=== PATIENT | male | born 1960 | race Caucasian/White ===

== ENCOUNTER 2016-05-29 02:15 | Inpatient (IN) | payer OTHER ==
[~2016-05-29] VITALS: Ht 188 cm; Wt 113.4 kg
[~2016-05-29 02:15] MED LIST: ASPIRIN81 M4 PO; ATACAND8 MG PO; COLCRYS0.6 MG PO; ELAVIL25 MG PO; FERROUS SULFAT325 M3 PO; METOPROLOL SUCC25 M1 PO; VITAMIN B-121000 MC3 PO; WARFARIN SODIUM5 MG PO
[2016-05-29 08:00] VITALS: BP 108/20
--- NOTE | 2016-05-29 12:43 | Operative Report ---
Operative/Inv Procedure Report Surgery Date: 05/29/16 Name of Procedure: Left total knee arthroplasty using a Striker triathlon system Pre-Operative Diagnosis: Degenerative joint disease left knee Post-Operative Diagnosis: Degenerative joint disease left knee Estimated Blood Loss: 50ml to 100ml Surgeon/Veterinary Laboratory Technician: Dandy Dumont M.D, Kenneth CORONA. Anesthesia: block Implants: A #7 posterior stabilized femoral component, a #6 tibial baseplate, a 39 mm patella component, a 16 mm polyethylene component Drains: One Hemovac Tourniquet: Tourniquet time was 96 minutes Complications: None Condition: Stable returned to PACU Operative Indication: This is a 55-year-old gentleman who has severe medial compartment arthritis. He has had injections and medication in the past but has failed conservative treatment. Because of his pain and inability to perform normal activities of daily living he is admitted for a left total knee arthroplasty Operative/Procedure Note Note: The patient received IV vancomycin in the preoperative area. He was taken to the operating room and a spinal anesthetic was administered. A second pair of skilled hands was required for the successful outcome of this procedure. Mr. Kenneth Powell, a certified physician's mechanic assistant assisted in retraction coagulation and positioning of the components. His presence was required for the successful completion of this operation. The patient was given a dose of trans-Zacarias acid, the left lower knee was then prepped and draped in usual sterile fashion a legholder was used throughout the procedure and a tourniquet was inflated above the left knee to a pressure of 350 mmHg after the leg had been exsanguinated with a sterile Esmarch. A midline incision was made and taken out through skin and subcutaneous tissue. Small bleeders were cauterized with the Bovie. A medial parapatellar incision was made and the patella was easily dislocated laterally. Osteophytes removed from the femur, tibia and patella. Medial and lateral vasectomy is were performed. The anterior cruciate ligament was excised. A medial release was performed. A drill hole was then made just anterior to the attachment of the anterior cruciate ligament and the long femoral guide sabino was inserted into the medullary canal. The distal femoral cutting jig was assembled and the distal femoral cut was made without difficulty. The cut surface of the femur was then sized to a #7 femoral template. Anterior, posterior and chamfer cuts were then made. A midline channel jig was then used to osteotomize the midportion of the distal femur to accept the posterior stabilized component. Attention was then turned to the tibial surface. A drill hole was made at the footprint of the anterior cruciate ligament and the tibial guide sabino was placed into the tibial medullary canal without difficulty. 10 mm of bone were then resected from the most affected medial side. A #6 tibial baseplate afforded good coverage. A trial reduction was then performed using a 13 mm tibial insert this was later changed to a 16 mm tibial insert. This allowed a full range of motion with good extension and good medial and lateral ligamentous balance. Attention was then turned to the patella. A flat osteotomy was performed and a 39 mm patellar trial was selected. This tracked well without the need of a lateral release. The cut surface of the tibial plateau was then drilled to accept the fins of the tibial baseplate. The cut surfaces of all of the bones were then copiously irrigated with pulsatile antibiotic solution and dried. A #7 femoral component was cemented into place after a #6 tibial component was cemented into place. Excess cement was removed with curettes and then a 16 mm polyethylene temporary trial tibial insert was placed and the knee was held in extension. A 39 patellar button was then cemented into place and held with a clamp until all cement had dried. The trial tibial insert was then removed and a permanent 16 mm polyethylene insert was placed over the baseplate and locked into position. The patient had a full range of motion and good medial and lateral ligamentous balance. The patella tracked well. The knee again was copiously irrigated. A large Hemovac drain was placed in the lateral gutter through a small stab incision. The deep tissues were closed with 0 Vicryl interrupted sutures. The subcutaneous tissues are closed with 2-0 Vicryl and the skin was closed with surgical segun. Blood loss was scant. Tourniquet time was 96 minutes. He was returned to the recovery room in excellent condition.
[2016-05-29 15:50] VITALS: BP 102/70
--- NOTE | 2016-05-29 16:38 | PN- Student ---
SAURABHMOERILEY 05/29/16 1633: Subjective Subjective: Post-op check, day #0 Patient just moved to floor. Reports to feeling well aside from mild incisional tenderness. Denies nausea, vomiting, chest pain, shortness of breath, dizziness, lightheadedness. Tolerated his light lunch well, without any nausea. Has a sauceda in place still, has not passed flatus. Has only moved from bed to chair with walker, has not been evaluated by PT. Has on-Q pump in place. States no acute pain, just sore over his left knee. Objective Objective: Temp: 97.7, HR : 61, RR: 18, BP: 102/70, O2: 94% RA NEVILLE drain x 1: 100mL, sanguinous Gen: well appearing, in no apparent distress, alert and oriented x 3 Skin: warm dry Cardiac: S1 S2 present, RRR Pulm: CTA bilaterally Abdomen: hypoactive bowel sounds, non-tender, mildly distended. Surgerical site - left knee: dressing clear dry intact, with segun intact underneath. No erythema, ecchymosis around area, non tender to palpation. Has OnQ pump in place Ext: motor and sensory functions intact. No calf tenderness. Assessment/Plan Assessment: 55 yo M s/p elective total left knee replacement for degenerative joint disease. Currently all vital signs stable and patient resting comfortably - Advance diet as tolerated - FU PT consult, weight bearing as tolerated - DVT and GI prophylaxis - Bowel regimen. - Consider DC sauceda in AM - Continue home meds, including BB - Pain control as needed - Change dressing on POD #2 - Discuss with attending ZAYDA ELIZABETH 05/29/16 1701: Addendum Addendum I have seen and examined patient and agree with above. Patient tolerating PO with good intake. DC IVF. Eliquis to start tonight.
[2016-05-29 18:00] VITALS: BP 102/20
--- NOTE | 2016-05-29 21:07 | NUR ---
CALL RECEIVED FROM DR GREENE. VERBAL ORDER RECEIVED TO HOLD DOSE OF ELIQUIS AND TO HAVE PT STARTED BACK ON COUMADIN. SURGICAL PA TEVIN WITT CALLED AND UPDATED. PA TO CHANGE ORDERS.
[2016-05-30] VITALS (7 sets, daily range): BP systolic 88–118; BP diastolic 62–76
--- NOTE | 2016-05-30 06:54 | PN- Student ---
DAVE WILEY 05/30/16 0648: Subjective Subjective: Post op check, day #1 Patient did well overnight, with no acute events. His IVF was DC yesterday. Reports that his incisional pain is slightly worse than yesterday as now it's more of a constant dull soreness/pain over his left knee. He has the On-Q pump in place, and states pain is relieved by pain medications. He's also reporting some numbness just superior to the incision. He's been tolerating his regular diet without any nausea, vomiting. His sauceda was DC'd this AM and reports to passing gas last night. He denies headaches, lightheadedness, dizziness, shortness of breath, abdominal pain. He was assessed by PT yesterday and will be re-assessed today. Objective Objective: Temp: 97.8, HR: 67, RR: 20, BP: 110/76 96% O2 RA NEVILLE drain x 1: 205mL/shift, sanguinous Gen: well appearing, in no apparent distress, alert and oriented x 3 Skin: warm dry Cardiac: S1 S2 present, RRR Pulm: CTA on right. Diminished breath sounds over left lung base. Abdomen: active bowel sounds, non-tender, mildly distended. Surgerical site - left knee: dressing clear dry intact, with segun intact underneath. No erythema, ecchymosis around area, tender to palpation. Has OnQ pump in place Ext: motor and sensory functions intact. No calf tenderness. PTs not appreciated , but DP 1+ Assessment/Plan Assessment: 55 yo M s/p elective total left knee replacement for degenerative joint disease now POD#1. Currently all vital signs stable and patient resting comfortably. His IVF and Sauceda have been DC'd - Advance diet as tolerated - FU PT consult, weight bearing as tolerated - DVT with coumadin, FU INR this AM - GI prophylaxis - Bowel regimen - Continue home meds, including BB - Pain control as needed - FU AM labs - Change dressing on POD #2 - Discuss with attending ZAYDA ELIZABETH 05/30/16 9337: Addendum Addendum I have seen and examined patient and agree with above. DC IVF. NEVILLE drain dc'd bedside. OOB with PT, WBAT. DC planning for tomorrow for home PT.
[2016-05-30 08:04] LABS: ABSOLUTE BASOPHIL COUNT 0 /CUMM (0.0-0.2); ABSOLUTE EOSINOPHIL COUNT 0 /CUMM (0.0-0.7); ABSOLUTE GRANULOCYTE CT 5.8 /CUMM (1.4-6.5); ABSOLUTE LYMPH COUNT 1.1 /CUMM (1.2-3.4); ABSOLUTE MONOCYTE COUNT 0.7 /CUMM (0.10-0.60); BASOPHIL % 0.2 % (0.0-2.0); EOSINOPHIL % 0.1 % (0-5); HEMATOCRIT 36.6 % (42-52); MEAN CORPUSCULAR HGB 30.9 PG (27.0-31.0); MEAN CORPUSCULAR HGB CONC 34.3 G/DL (33.0-37.0); MEAN PLATELET VOLUME 8.4 FL (7.4-10.4); PLATELET COUNT 150 /CUMM (130-400); RBC DISTRIBUTION WIDTH 13.5 % (11.5-14.5); RED BLOOD CELL CT 4.07 /CUMM (4.70-6.10); WHITE BLOOD CELL COUNT 7.6 /CUMM (4.8-10.8)
[2016-05-30 08:24] LABS: GRANULOCYTE % 76.6 % (42.2-75.2)
[2016-05-30 08:29] LABS: PT 13.5 SEC (9.4-12.5)
--- NOTE | 2016-05-30 09:28 | Patient Discharge Instructions ---
Discharge Instructions General Discharge Information You were seen/treated for: Degenerative joint disease left knee You had these procedures: 05/29/16 Left total knee arthroplasty using a Sonicbids system Watch for these problems: Redness, swelling, fever, signs of infection. Uncontrolled pain, Excessive bleeding. Decreased range of motion or unable to bear weight. Chest pain, shortness of breath. Do not soak the wound: Yes No bath, but you may shower: Yes Other wound care: Daily dressing changes or as needed. Leave steri strips in place for at least 7 days. Special Instructions: Hold blood pressure medication metoprolol and atacand now for low blood pressure. My resume if blood pressure returns to pre-op levels. Monitor daily. Follow up with insurance advisor Dr La within 1-2 weeks for blood pressure medication management. Diet Continue normal diet: Yes Activity Activity Self Limited: Yes Activity Limited to: Weight bear as tolerated Additional ACTIVITY Info: Daily PT Acute Coronary Syndrome Inclusion Criteria At DC or during hospital stay patient has or had the following: ACS DIAGNOSIS No Discharge Core Measures Meds if any: Prescribed or Continued at Discharge Meds if any: NOT Prescribed or Continued at Discharge Congestive Heart Failure Inclusion Criteria At DC or during hospital stay patient has or had the following: CHF DIAGNOSIS No Discharge Core Measures Meds if any: Prescribed or Continued at Discharge Meds if any: NOT Prescribed or Continued at Discharge Cerebrovascular accident Inclusion Criteria At DC or during hospital stay patient has or had the following: CVA/TIA Diagnosis No Discharge Core Measures Meds if any: Prescribed or Continued at Discharge Meds if any: NOT Prescribed or Continued at Discharge Venous thromboembolism Inclusion Criteria VTE Diagnosis No VTE Type NONE VTE Confirmed by (Test) NONE Discharge Core Measures - Per Current guidelines, there needs to be overlap - treatment for the first 5 days of Warfarin therapy. - If discharged on Warfarin prior to 5 days of - overlap therapy, the patient will need to be - assessed for post discharge needs including - *Post discharge parental anticoagulation - *Warfarin and/or parental anticoagulation education - *Follow up date to check INR post discharge At least 5 days overlap therapy as Inpatient No Meds if any: Prescribed or Continued at Discharge Note: Overlap Therapy is Warfarin and Anticoagulant Meds if any: NOT Prescribed or Continued at Discharge
[2016-05-30] MEDS ORDERED: COLACE100 M1 PO (09:31)
[2016-05-30] MEDS ORDERED: MIRALAX17 G1 PO (09:31)
[2016-05-30] MEDS ORDERED: PERCOCET 5-3251 EACH PO (09:31)
--- NOTE | 2016-05-30 09:33 | Discharge Summary ---
Visit Information Visit Dates Admission Date: 05/29/16 Discharge Date: 06/01/16 Hospital Course Course Attending Physician: JC MINER,TIMOTHY Bucio Primary Care Physician: LUKE MINER,[facility] Course: Patient admitted to floor following procedure below. Patient ambulated with PT upon arrival to the floor. Patient continued to progress well. On POD 2 he was dizzy with standing numerous times throughout the day and unable to walk with PT. He attributed this to taking a sleeping pill along with the continued percocet. His blood pressure and all other vital signs remained stable, with a systolic bp in the 110-118 range. The next day he was cleared by PT for discharge home with services. Upon discharge patient is afebrile, tolerating diet, pain controlled, ambulating well with rolling walker and PT. Complications: None Allergies: Coded Allergies: NO KNOWN ALLERGIES (05/14/16) Significant Procedures: 05/29/16 Left total knee arthroplasty using a Striker CleanEdisonathlon system Disposition Summary Disposition Principal Diagnosis: Degenerative joint disease left knee Additional Diagnosis: None Discharge Disposition: home health services Discharge Instructions General Discharge Information Code Status: Full Code Patient's Diet: Resume normal diet Patient's Activity: WBAT Daily physical therapy Follow-Up Instructions/Appts: Call office to schedule/confirm appointment. Call Dr La office for an appointment regarding blood pressure within one week. Medications at Discharge Discharge Medications: Stop taking the following medications: Metoprolol Succinate (Metoprolol Succinate) 25 MG TAB ORAL DAILY Aspirin (Aspirin*) 81 MG TAB.CHEW ORAL DAILY Candesartan Cilexetil (Atacand) 8 MG TABLET ORAL Every Day Continue taking these medications: Candesartan Cilexetil (Atacand) 8 MG TABLET 1 Tablet ORAL DAILY Colchicine (Colcrys) 0.6 MG TAB 0.6 Milligram ORAL Every night Qty = 30 Comments: TAKE 1 TABLET EVERY DAY - SIG Obtained From Luciana Amitriptyline Hydrochloride (Elavil) 25 MG TAB 50 mg ORAL AT BEDTIME Qty = 20 Ferrous Sulfate (Ferrous Sulfate) 325 MG (65 MG IRON) TABLET 1 Tablet ORAL DAILY Cyanocobalamin (Vitamin B-12) (Unknown Strength) TABLET 1 Tablet ORAL DAILY Start taking the following new medications: Oxycodone HCl/Acetaminophen (Percocet 5-325 MG Tablet) 5 MG-325 MG TABLET 1-2 Tablet ORAL EVERY 4-6 HOURS as needed for PAIN Qty = 36 No Refills Polyethylene Glycol 3350 (Miralax) 17 GRAM POWD.PACK 1 Packet ORAL DAILY Qty = 14 No Refills Instructions: dissolve in water Docusate Sodium (Colace) 100 MG CAPSULE 1 Capsule ORAL TWICE DAILY as needed for CONSTIPATION Qty = 14 No Refills Warfarin Sodium (Coumadin) 5 MG TABLET 1 Tablet ORAL DAILY Qty = 30 No Refills Instructions: TO BE DOSED ACCORDING TO INR. GOAL INR 2-3. INR TWICE WEEKLY UNTIL STABLE Copies To: JC MINER,TIMOTHY Bucio; LUKE MINER,ASHER
--- NOTE | 2016-05-30 09:45 | NUR ---
PT UP TO WORK WITH PT. PT HAD QUICKLY JUMPED OOB INSTEAD OF TAKING TIME TO SIT THEN STAND AND THEN EVENTUALLY WALK WITH PT. PT C/O DIZZINESS, PALLOR NOTED. PT ASSISTED TO SIT BACK DOWN. VS ASSESSED- 98.3 66 20 102/70 97% RA. DENIES PAIN. AFTER WAITING A PERIOD OF TIME, PT ASSISTED AGAIN OOB TO CHAIR W/AX2 STANDBY WITH USE OF RW. SLIGHT BLEEDING NOTED TO PT'S LLE SAROJ WRAP (NEVILLE DRAIN REMOVED THIS AM BY PA AND PA STUDENT- PT DID HAVE A MODERATE AMT OF BLOOD LOSS FROM SITE) UPON STANDING AGAIN, PT C/O DIZZINESS AGAIN. VS REASSESED- ALL WNL EXCEPT FOR BP-- NOW 88/62. PT ASSISTED INTO CHAIR. BLE'S ELEVATED IN RECLINER. SURGICAL PA MAYELA NOTIFIED. SNO FOR IV BOLUS. PT ALSO REPORTED HE HASN'T BEEN TAKING MUCH PO INTAKE. PO FLUID INTAKE ENCOURAGED. IV BOLUS STARTED. PT REPORTS HE FEELS "FINE" IN THE RECLINER. WILL CONT TO MONITOR. BOLUS STARTED. TO HOLD LOSARTAN PER PA BUT TO REASSESS BP AFTER BOLUS AND SEE IF METOPROLOL CAN BE GIVEN. WILL CONT TO MONITOR.
--- NOTE | 2016-05-30 14:01 | PN- Orthopedic ---
Subjective Subjective: Clark is 24 hours status post left total knee arthroplasty. He is comfortable with his pain block. His vital signs are stable. He had some lightheadedness this morning but after a second attempt use able to ambulate 150 feet with a walker. He feels well. He is anticipating a discharge to home tomorrow. Objective Vital Signs and I&Os Vital Signs Date Time Temp Pulse Resp B/P Pulse O2 O2 Flow FiO2 Ox Delivery Rate 05/30 1139 75 118/62 05/30 1130 75 118/62 05/30 0950 98.4 75 20 88/62 96 Room Air 05/30 0945 98.3 66 20 102/70 97 Room Air 05/30 0818 98.4 72 20 110/73 94 Room Air 05/30 0410 97.8 67 20 110/76 96 05/30 0020 97.9 70 20 114/68 95 05/29 1800 97.7 61 18 102/20 94 Room Air 05/29 1550 97.7 61 18 102/70 94 Intake & Output 05/30 1600 05/30 0800 05/30 0000 05/29 1600 05/29 0800 05/29 0000 Intake Total 1220 Output Total 1705 990 775 Balance -1705 -990 445 Intake, IV 500 Intake, Oral 720 Number 0 Bowel Movements Output, 205 140 175 Drainage Output, Urine 1500 850 600 Patient 250 lb Weight Physical Exam Other Physical Findings: His dressing is dry neurologically he is intact Current Medications: Current Medications Sig/Niki Start time Last Medication Dose Route Stop Time Status Admin Al Hydroxide/Mg 30 ML Q6P PRN 05/29 1315 AC Hydroxide PO Amitriptyline HCl 50 MG AT BEDTIME 05/29 2200 AC 05/29 PO 2112 Apixaban 2.5 MG BID 05/29 2200 DC PO Colchicine 600 MCG QPM 05/29 2200 DC PO Dextrose/Lactated 1,000 ML Q13H 05/29 1315 DC 05/29 Ringer's IV 1408 Docusate Sodium 100 MG DAILY NEEDED PRN 05/29 1315 AC PO Losartan Potassium 37.5 MG DAILY 05/30 1000 AC PO Metoprolol Succinate 50 MG DAILY 05/30 1000 AC 05/30 PO 1139 Morphine Sulfate 2 MG Q2P PRN 05/29 1315 AC IV Morphine Sulfate 4 MG Q1P PRN 05/29 1315 AC 05/30 IV 1337 Ondansetron HCl 4 MG Q6P PRN 05/29 1315 AC IV Oxycodone/ 1 TAB Q4P PRN 05/29 1315 AC Acetaminophen PO Oxycodone/ 2 TAB Q4P PRN 05/29 1315 AC 05/30 Acetaminophen PO 1140 Polyethylene Glycol 17 GM DAILY NEEDED PRN 05/29 1315 AC PO Ropivacaine 500 ML ONCE ONE 05/29 1200 AC ON-Q Ball 1 BAG INJ 05/31 1359 Senna/Docusate Sodium 2 TAB AT BEDTIME NEED.. 05/29 1315 AC PO Sodium Chloride 500 ML BOLUS ONE 05/30 0945 DC 05/30 IV 05/30 1044 0944 Vancomycin HCl 1,500 MG ONCE ONE 05/29 1900 DC 05/29 Sodium Chloride 250 ML IV 05/29 2029 1808 Warfarin Sodium 5 MG COUMADIN 1700 ONE 05/30 1700 AC PO 05/30 1701 Warfarin Sodium 5 MG ONE TIME ONE 05/29 213 DC 05/29 PO 05/29 2131 2202 Results Last 48 Hours of Labs: Laboratory Tests 05/30 0715 Chemistry Sodium (137 - 145 mmol/L) 135 L Potassium (3.5 - 5.1 mmol/L) 4.3 Chloride (98 - 107 mmol/L) 101 Carbon Dioxide (22 - 30 mmol/L) 26 Anion Gap (5 - 16) 7 BUN (9 - 20 mg/dL) 11 Creatinine (0.7 - 1.2 mg/dL) 0.7 Estimated GFR (>60 ml/min) > 60 BUN/Creatinine Ratio (7 - 25 %) 15.7 Coagulation PT (9.4 - 12.5 SEC) 13.5 H INR (0.90 - 1.17) 1.29 H Hematology CBC w Diff NO MAN DIFF REQ WBC (4.8 - 10.8 /CUMM) 7.6 RBC (4.70 - 6.10 /CUMM) 4.07 L Hgb (14.0 - 18.0 G/DL) 12.6 L Hct (42 - 52 %) 36.6 L MCV (80.0 - 94.0 FL) 90.0 MCH (27.0 - 31.0 PG) 30.9 RDW (11.5 - 14.5 %) 13.5 Plt Count (130 - 400 /CUMM) 150 MPV (7.4 - 10.4 FL) 8.4 Gran % (42.2 - 75.2 %) 76.6 H Lymphocytes % (20.5 - 51.1 %) 14.0 L Monocytes % (1.7 - 9.3 %) 9.1 Eosinophils % (0 - 5 %) 0.1 Basophils % (0.0 - 2.0 %) 0.2 Absolute Granulocytes (1.4 - 6.5 /CUMM) 5.8 Absolute Lymphocytes (1.2 - 3.4 /CUMM) 1.1 L Absolute Monocytes (0.10 - 0.60 /CUMM) 0.7 H Absolute Eosinophils (0.0 - 0.7 /CUMM) 0 Absolute Basophils (0.0 - 0.2 /CUMM) 0 PUBS MCHC (33.0 - 37.0 G/DL) 34.3 Assessment/Plan Assessment/Plan Assessment status post left total knee arthroplasty with good postoperative progress he'll be discharged to home on Thursday area his sutures were removed in the office in 2 weeks. At that point he may be ready for outpatient therapy. He will be on warfarin therapy for 6 weeks and will have his blood levels checked at the [facility] clinic and I will see him back routinely in the office in 4 weeks or sooner if any concerns or problems develop Core Measures/Miscellaneous Venous Thromboembolism VTE Risk Factors: Acute medical illness (na) VTE Contraindications: Abn Clotting Times, Active Bleeding, Docu Bleeding Disorder, Hypersensitivity Heparin, No Contraindications, Severe Extrem Trauma x4wk, Severe Head Trauma x4 wk, Severe Renal Fail- LMWH, Severe Spine Trauma x4 wk, Uncontrolled Hypertension VTE Prophylaxis Ordered Inpt: Pharm- Eliquis [facility] V[facility] Prophylaxis D/T: Amputee, At Risk for Falls, CHF, Confusional State, Dermatitis, DVT of LE, General Pt Non-Compliance, Hypervolemia, LE Deformity, LE Edema, LE Injury, current, Lower Limb Ischemia, Peripheral Vascular Dx, Pt Refused Treatment, Sensory Neuropathy VTE Diagnosis: Yes Beta Radha Is Beta Radha a Home Med? Yes Antibiotics Is Patient on Antibiotics? No
[2016-05-31 00:42] VITALS: BP 118/70
[2016-05-31 08:00] VITALS: BP 114/64
[2016-05-31 08:44] LABS: ABSOLUTE BASOPHIL COUNT 0 /CUMM (0.0-0.2); ABSOLUTE EOSINOPHIL COUNT 0.1 /CUMM (0.0-0.7); ABSOLUTE GRANULOCYTE CT 3.1 /CUMM (1.4-6.5); ABSOLUTE LYMPH COUNT 1.3 /CUMM (1.2-3.4); ABSOLUTE MONOCYTE COUNT 0.8 /CUMM (0.10-0.60); BASOPHIL % 0.3 % (0.0-2.0); GRANULOCYTE % 58.6 % (42.2-75.2); HEMATOCRIT 32.2 % (42-52); MEAN CORPUSCULAR HGB CONC 34.4 G/DL (33.0-37.0); MEAN CORPUSCULAR VOLUME 89.9 FL (80.0-94.0); MEAN PLATELET VOLUME 8.4 FL (7.4-10.4); PLATELET COUNT 114 /CUMM (130-400); RBC DISTRIBUTION WIDTH 13.7 % (11.5-14.5); RED BLOOD CELL CT 3.58 /CUMM (4.70-6.10); WHITE BLOOD CELL COUNT 5.3 /CUMM (4.8-10.8)
[2016-05-31] MEDS ORDERED: ATACAND8 MG PO (09:39)
[2016-05-31] MEDS ORDERED: COUMADIN5 M2 PO ×2 (09:42→10:18)
--- NOTE | 2016-05-31 10:24 | PN- Orthopedic ---
See Addendum Subjective Subjective: OOB in chair. Just felt dizzy while standing but it passed and he feels better now. Pain well controlled with oral meds. Worked with PT but has not cleared stairs yet. Objective Vital Signs and I&Os Vital Signs Date Time Temp Pulse Resp B/P Pulse O2 O2 Flow FiO2 Ox Delivery Rate 05/31 800 98.2 81 18 114/64 95 Room Air 05/31 0042 98.4 83 19 118/70 95 Room Air 05/30 1607 98.3 71 20 118/70 96 05/30 1139 75 118/62 05/30 1130 75 118/62 Intake & Output 05/31 1600 05/31 0800 05/31 0000 05/30 1600 05/30 0800 05/30 0000 Intake Total 250 480 800 Output Total 400 918 986 7750 990 Balance -150 -95 650 -1705 -990 Intake, IV 500 Intake, Oral 250 480 300 Number 0 Bowel Movements Output, 205 140 Drainage Output, Urine 400 253 660 6658 850 Physical Exam: vss, afebrile systolic bp at 118 without metoprolol or atacand and has been running on the low side post op General: alert and oriented times three, no dizziness Chest: clear anteriorly bilaterally, RRR Abd: soft, good bs Ext: warm, no edema, positive sensate, good strength, no calf tenderness Wound: dressing changed, wound is clean and dry, segun intact, no erythema Assessment/Plan Assessment/Plan 55 yo male s/p L TKR coumadin per INR PT dc home with home services if cleared by PT fu visit already scheduled Plan to hold bp meds at discharge - discussed in detail with patient and he understands, he will follow up with Dr La - cardiology within 1-2 weeks of discharge and check blood pressure daily. He will resume meds if systolic>120 routinely Core Measures/Miscellaneous Venous Thromboembolism VTE Risk Factors: Age > 40, Surgery VTE Contraindications: No Contraindications VTE Prophylaxis Ordered Inpt: Mech & Pharm VTE Diagnosis: No Beta Radha Is Beta Radha a Home Med? Yes If Yes, Was This Ordered Today? No If No, Why Not? hypotension Antibiotics Is Patient on Antibiotics? No
--- NOTE | 2016-05-31 11:06 | NUR ---
LATE ENTRY: PT LEFT FLOOR FOR XRAY AT 0755 AND RETURNED AT 0822. HE C/O DIZZINESS AFTER TRANSFERRING FROM STRETCHER TO CHAIR. PHYSICAL THERAPY ATTEMPTED TO WALK WITH HIM THREE TIMES. TWICE HE WAS TOO DIZZY TO TRY. HIS BP WAS WAS 122/74, PULSE 90. ON THEIR THIRD TRY, HE WAS AGREEABLE TO TRANSFER TO BED, BUT NOT TO ATTEMPT STAIRS. WILL CONTINUE TO MONITOR.
--- NOTE | 2016-05-31 11:10 | NUR ---
Physical Therapy Attempts made x2 to see pt for PT this AM. Upon first attempt pt reports after returning from x-ray and sitting up in chair feeling mild dizziness/light-headed. RN and surgical PA aware and monitoring pt vitals. As per RN BP has been stable all morning. Second attempt made; pt continues with report of dizziness sitting in chair therefore PT deferred at this time. Will f/u as appropriate, pending pt symptoms. D/c home on hold at this time as per PA/RN.
--- NOTE | 2016-05-31 11:31 | RADIOLOGY REPORT ---
EXAMINATION: XR KNEE, LEFT CLINICAL INFORMATION: Total knee arthroplasty. COMPARISON: MRI of the knee from 11/28/2014 TECHNIQUE: Left knee, AP and crosstable lateral views FINDINGS: The components of the total knee arthroplasty are in satisfactory position. There is anatomic alignment at the patellofemoral and tibiofemoral compartments. No acute periprosthetic fracture. Postoperative soft tissue swelling, soft tissue emphysema and anterior skin segun in place. IMPRESSION: There are expected postoperative changes from total knee arthroplasty without acute fracture or malalignment.
--- NOTE | 2016-05-31 14:03 | NUR ---
AT THIS TIME, PT REPORTS THAT HIS DIZZINESS HAS RETURNED, AND HE WANTS TO REFRAIN FROM TAKING PAIN MEDS TO SEE IF THAT'S THE CULPRIT. WILL CONTINUE TO MONITOR.
[2016-05-31 17:08] VITALS: BP 118/72
[2016-06-01 00:36] VITALS: BP 116/68
--- NOTE | 2016-06-01 07:31 | PN- Orthopedic ---
See Addendum Subjective Subjective: The patient was seen this morning postoperatively day #3. He reports his pain is under adequate control and he is not dizzy as he was yesterday. He has no other points of the current time and is eager to go home today. Objective Vital Signs and I&Os Vital Signs Date Time Temp Pulse Resp B/P Pulse O2 O2 Flow FiO2 Ox Delivery Rate 06/01 0036 98.0 88 20 116/68 95 05/31 1708 98.0 92 18 118/72 95 05/31 0800 98.2 81 18 114/64 95 Room Air Intake & Output 06/01 0800 06/01 0000 05/31 1600 05/31 0800 05/31 0000 05/30 1600 Intake Total 400 800 250 480 800 Output Total 425 450 300 400 575 150 Balance -425 -50 500 -150 -95 650 Intake, IV 500 Intake, Oral 400 800 250 480 300 Number 0 Bowel Movements Output, Urine 425 450 300 400 575 150 Physical Exam: Gen.: Alert and in obvious distress Skin: Warm and dry Extremities: Bilateral lower extremities are warm without calf tenderness or significant edema. Gross motor and sensory are intact. Left knee surgical incision is clean, dry, and intact without signs of infection. Assessment/Plan Assessment/Plan Assessment: 55-year-old male status post left total knee arthroplasty operative day #3. The patient is progressing as expected, his pain started adequate control, and she is working with physical therapy. Plan: Follow-up morning labs and dose Coumadin for an INR between 2 and 3 GI and DVT prophylaxis Continue current pain regiment Daily dry dressing change to surgical site Discharge home later today if is cleared by physical therapy on stairs Core Measures/Miscellaneous Venous Thromboembolism VTE Risk Factors: Age > 40, Surgery VTE Contraindications: No Contraindications VTE Prophylaxis Ordered Inpt: Mech & Pharm VTE Diagnosis: No Beta Radha Is Beta Radha a Home Med? Yes If Yes, Was This Ordered Today? No If No, Why Not? hypotension Antibiotics Is Patient on Antibiotics? No
[2016-06-01 08:09] VITALS: BP 140/72
[2016-06-01 08:52] LABS: PT 14.9 SEC (9.4-12.5)
== END 2016-06-01 11:25 | disposition home health service (06) | DRG 470 ==
LOC: SDA 02:15 → 2NB 12:58
PROVIDERS: Physician Assistant; Physician Assistant Surgical; ADMIT Orthopaedic Surgery
PROC: 0SRD0J9 Replacement of Left Knee Joint with Synthetic Substitute, Cemented, Open Approach (ICD-10-PCS; principal; 2016-05-29)
DX: M17.12 Unilateral primary osteoarthritis, left knee (principal); D62 Acute posthemorrhagic anemia; I10 Essential (primary) hypertension; I48.2 Chronic atrial fibrillation; E78.5 Hyperlipidemia, unspecified
CPT/HCPCS: 2NBSP; 36415; 73560-LT; 82436; 87086; 88305; 97001-GP; 97110-GO; 97116-GO; 97530-GO; C1713; J0131; J2405; J2795; J3370; J7040

== ENCOUNTER 2016-09-09 00:38 | Emergency (ER) | payer OTHER ==
[~2016-09-09] VITALS: Ht 190.5 cm; Wt 108.9 kg
[~2016-09-09 00:38] MED LIST changes: +COLACE100 M1 PO; +COUMADIN5 M2 PO; +MIRALAX17 G1 PO; +PERCOCET 5-3251 EACH PO
--- NOTE | 2016-09-09 01:00 | ED GI/GU/ABDOMINAL COMPLAINT ---
History of Present Illness General Chief Complaint: Abdominal Pain/Flank Pain Stated Complaint: LEFT LOWER ABD PAIN X2 DAYS Source: patient Exam Limitations: no limitations Vital Signs & Intake/Output Vital Signs & Intake/Output Vital Signs Date Time Temp Pulse Resp B/P Pulse O2 O2 Flow FiO2 Ox Delivery Rate 09/09 0148 80 178/98 09/09 0047 96.9 70 18 163/94 97 Room Air Allergies Coded Allergies: No Known Allergies (09/09/16) Reconcile Medications Amitriptyline Hydrochloride (Elavil) 25 MG TAB 50 mg PO AT BEDTIME neuralgia Colchicine (Colcrys) 0.6 MG TAB 0.6 MG PO QPM CARDIAC (Reported) Cyanocobalamin (Vitamin B-12) (Unknown Strength) TABLET 1 TAB PO DAILY SUPPLEMENT (Reported) Docusate Sodium (Colace) 100 MG CAPSULE 1 CAP PO BID PRN CONSTIPATION Ferrous Sulfate 325 MG (65 MG IRON) TABLET 1 TAB PO DAILY SUPPLEMENT ( Reported) Ibuprofen 800 MG TABLET 1 TAB PO TID PRN PAIN Ondansetron (Zofran Odt) 4 MG TAB.RAPDIS 1 TAB PO Q6 PRN NAUSEA Oxycodone HCl/Acetaminophen (Percocet 5-325 MG Tablet) 5 MG-325 MG TABLET 1 TAB PO Q4-6 PRN BREAKTHROUGH PAIN Oxycodone HCl/Acetaminophen (Percocet 5-325 MG Tablet) 5 MG-325 MG TABLET 1-2 TAB PO Q4-6 PRN PAIN Polyethylene Glycol 3350 (Miralax) 17 GRAM POWD.PACK 1 PAC PO DAILY CONSTIPATION dissolve in water Tamsulosin HCl (Flomax) 0.4 MG CAP.ER.24H 1 CAP PO DAILY KIDNEY STONE Warfarin Sodium (Coumadin) 5 MG TABLET 1 TAB PO DAILY BLOOD THINNER TO BE DOSED ACCORDING TO INR. GOAL INR 2-3. INR TWICE WEEKLY UNTIL STABLE Triage Note: TRIAGE: PATIENT TO ER REPORTS L LOW ABD PAIN W/ VOMITTING X1 HOUR, HAD SAME EPISODE ON THURSDAY WHICH DID NOT RESULT IN VOMITTING, LASTED APPROX 1 HOUR AND RESOLVED ON OWN. PATIENT DENIES DIARRHEA/ CP/ SOB. PATIENT +NAUSEA AT THIS TIME. Triage Nurses Notes Reviewed? yes Onset: Abrupt Duration: day(s):, waxing and waning, worse persistent since (1 hr) Quality/Severity: severe, stabbing Severity Numbers: 10 Location: left flank Radiation: no radiation Activities at Onset: none Associated Symptoms: diaphoresis, nausea/vomiting HPI: 55 y/o male with LLQ pain x 2 days, worse for the last hour. Similar symptoms a few days ago which resolved on its own. Tonight he is nauseated, diaphoretic and pain is severe and intense. No back pain. No diarrhea. Denies urinary symptoms. Past History Travel History Traveled to [place] past 21 day No Medical History Any Pertinent Medical History? see below for history Neurological: NONE EENT: NONE Cardiovascular: AFIB, mitral regurgitation Respiratory: NONE Gastrointestinal: NONE Hepatic: NONE Renal: NONE Musculoskeletal: osteoarthritis Psychiatric: NONE Endocrine: NONE Blood Disorders: NONE Cancer(s): NONE LEGAL SUPPORT SPECIALIST/Reproductive: NONE History of MRSA: No History of VRE: No History of CDIFF: No Surgical History Surgical History: none Psychosocial History Who do you live with Spouse What is your primary language Occitan Tobacco Use: Never used Family History Hx Contributory? No Review of Systems Review of Systems Constitutional: Reports: no symptoms. EENTM: Reports: no symptoms. Respiratory: Reports: no symptoms. Cardiovascular: Reports: no symptoms. GI: Reports: no symptoms. Genitourinary: Reports: no symptoms. Musculoskeletal: Reports: no symptoms. Skin: Reports: no symptoms. Neurological/Psychological: Reports: no symptoms. Hematologic/Endocrine: Reports: no symptoms. Immunologic/Allergic: Reports: no symptoms. All Other Systems: Reviewed and Negative Physical Exam Physical Exam General Appearance: alert, awake, moderate distress, obese, diaphoretic Head: atraumatic, normal appearance Eyes: Bilateral: PERRL, EOMI. Ears, Nose, Throat, Mouth: hearing grossly normal, moist mucous membrane Respiratory: normal breath sounds, chest non-tender, no respiratory distress Cardiovascular: regular rate/rhythm Peripheral Pulses: 2+ radial (R), 2+ radial (L) Gastrointestinal: normal bowel sounds, soft Male Genitals: normal genitalia Back: normal inspection, normal range of motion Neurologic/Psych: no motor/sensory deficits, awake, alert, oriented x 3 Skin: diaphoresis Core Measures ACS in differential dx? No Severe Sepsis Present: No Septic Shock Present: No Progress Differential Diagnosis: AAA, diverticulitis, perforated viscous, ureterolithiasis, UTI/pyelo Plan of Care: Orders Procedure Date/time Status URINALYSIS 09/09 0305 Complete TROPONIN LEVEL 09/09 0055 Complete LIPASE 04/11 0055 Complete COMPREHENSIVE METABOLIC PANEL 09/09 54 Complete CBC WITHOUT DIFFERENTIAL 09/09 54 Complete AMYLASE 09/09 54 Complete Laboratory Tests 09/09/165: Urinalysis LIGHT H, Urine Color STRAW, Urine Clarity CLEAR, Urine pH 7.5, Ur Specific [place] 1.010, Urine Protein TRACE H, Urine Ketones TRACE H, Urine Nitrite NEG, Urine Bilirubin NEG, Urine Urobilinogen 0.2, Ur Leukocyte Esterase NEG, Ur Microscopic SEDIMENT EXAMINED, Urine RBC >75 H, Urine WBC 1-3 H, Urine Mucus MOD H, Urine Hemoglobin LARGE H, Urine Glucose NEG 09/09/1654: Anion Gap 10, Estimated GFR > 60, BUN/Creatinine Ratio 22.2, Glucose 116 H, Calcium 9.7, Total Bilirubin 0.6, AST 33, ALT 41, Alkaline Phosphatase 34, Troponin I < 0.01, Total Protein 7.2, Albumin 4.5, Globulin 2.7, Albumin/ Globulin Ratio 1.7, Amylase 50, Lipase 86, CBC w Diff NO MAN DIFF REQ, RBC 4.61 L, MCV 85.2, MCH 29.2, RDW 15.7 H, MPV 8.8, Gran % 55.4, Lymphocytes % 29.7, Monocytes % 10.1 H, Eosinophils % 4.3, Basophils % 0.5, Absolute Granulocytes 2.4, Absolute Lymphocytes 1.3, Absolute Monocytes 0.4, Absolute Eosinophils 0.2, Absolute Basophils 0, PUBS MCHC 34.3 morphine, saline, zofran, labs, ct ordered. minimal relief. dilaudid ordered 3:59 AM Patient with pain relief after toradol. Urinalysis positive for blood, does not appear infected. He will call Dr. Braun's office this morning for an appointment. Patient given instructions when to return to the hospital. (PANTERA MINER,KRISTEN) Diagnostic Imaging: Viewed by Me: CT Scan. Discussed w/RAD: CT Scan. Initial ED EKG: none Comments: PATIENT: BREANNE SANDOVAL PRESENT AGE: 55 PATIENT ACCOUNT NO: [id number] : 59 LOCATION: [facility] ORDERING PHYSICIAN: KRISTEN MOTT MD SERVICE DATE: 09/09/16 EXAM TYPE: CAT - CT ABD & PELVIS W IV CONTRAST EXAMINATION: CT ABDOMEN AND PELVIS WITH CONTRAST CLINICAL INFORMATION: Left lower quadrant pain. COMPARISON: None. TECHNIQUE: Contiguous axial thin section helical images of the abdomen and pelvis were performed following the administration of 94 mL of intravenous Optiray 320. The data set was reformatted in the coronal and sagittal planes and reviewed on an independent workstation. DLP: 928 mGy-cm. FINDINGS: The visualized lung bases are clear. The visualized portions of the heart are unremarkable. The liver is of normal size and attenuation without focal lesions nor intrahepatic biliary ductal dilation. The patient is status post cholecystectomy. Surgical clips are present. The spleen, pancreas, adrenal glands are unremarkable. A normal right kidney is present. There is left grade 2 hydroureteronephrosis secondary to an obstructive proximal calculus measuring 4 mm. There is mild left perinephric stranding. Following the administration of IV contrast, prompt symmetric nephrograms are displayed. There is no abdominal free fluid. There is neither mesenteric nor retroperitoneal lymphadenopathy. Normal unopacified loops of small and large bowel are identified. There is no pelvic free fluid. The urinary bladder is unremarkable. There is neither pelvic nor inguinal lymphadenopathy. Bone windows: Neither sclerotic nor lytic bone lesions are identified. There is disc height loss at L5/S1. IMPRESSION: Left grade 2 hydroureteronephrosis secondary to an obstructive 4 mm proximal left ureteral calculus. DICTATED BY: STEVEN JULIO MD DATE/TIME DICTATED:09/09/16248 GLOVE CLEANER:LISA DATE/TIME TRANSCRIBED:09/09/16248 CONFIDENTIAL, DO NOT COPY WITHOUT APPROPRIATE AUTHORIZATION. <Electronically signed in Other Vendor System> SIGNED BY: STEVEN JULIO MD 09/09/16 0256 Departure Departure Disposition: HOME OR SELF CARE Condition: Stable Clinical Impression Primary Impression: Renal colic on left side Referrals: OBED MINER,SOBEIDA BUTLER MD,ASHER (PCP/Family) ZOILA BRAUN MD Additional Instructions: Take the Flomax, Zofran, Motrin and Percocet as directed. Please follow-up with urologist listed. Drink plenty of fluids. Return to the ER for any changing or worsening symptoms. Departure Forms: Customer Survey General Discharge Information Prescriptions: Current Visit Scripts Ondansetron (Zofran Odt) 1 TAB PO Q6 PRN NAUSEA #20 TAB Ibuprofen 1 TAB PO TID PRN PAIN #20 TAB Tamsulosin HCl (Flomax) 1 CAP PO DAILY #14 CAP Oxycodone HCl/Acetaminophen (Percocet 5-325 MG Tablet) 1 TAB PO Q4-6 PRN BREAKTHROUGH PAIN #15 TAB
[2016-09-09 01:18] LABS: ABSOLUTE BASOPHIL COUNT 0 /CUMM (0.0-0.2); ABSOLUTE EOSINOPHIL COUNT 0.2 /CUMM (0.0-0.7); ABSOLUTE GRANULOCYTE CT 2.4 /CUMM (1.4-6.5); ABSOLUTE LYMPH COUNT 1.3 /CUMM (1.2-3.4); ABSOLUTE MONOCYTE COUNT 0.4 /CUMM (0.10-0.60); BASOPHIL % 0.5 % (0.0-2.0); EOSINOPHIL % 4.3 % (0-5); GRANULOCYTE % 55.4 % (42.2-75.2); HEMATOCRIT 39.2 % (42-52); MEAN CORPUSCULAR HGB 29.2 PG (27.0-31.0); MEAN CORPUSCULAR HGB CONC 34.3 G/DL (33.0-37.0); MEAN CORPUSCULAR VOLUME 85.2 FL (80.0-94.0); MEAN PLATELET VOLUME 8.8 FL (7.4-10.4); PLATELET COUNT 165 /CUMM (130-400); RBC DISTRIBUTION WIDTH 15.7 % (11.5-14.5); RED BLOOD CELL CT 4.61 /CUMM (4.70-6.10); WHITE BLOOD CELL COUNT 4.3 /CUMM (4.8-10.8)
--- NOTE | 2016-09-09 02:56 | CT SCAN REPORT ---
EXAMINATION: CT ABDOMEN AND PELVIS WITH CONTRAST CLINICAL INFORMATION: Left lower quadrant pain. COMPARISON: None. TECHNIQUE: Contiguous axial thin section helical images of the abdomen and pelvis were performed following the administration of 94 mL of intravenous Optiray 320. The data set was reformatted in the coronal and sagittal planes and reviewed on an independent workstation. DLP: 928 mGy-cm. FINDINGS: The visualized lung bases are clear. The visualized portions of the heart are unremarkable. The liver is of normal size and attenuation without focal lesions nor intrahepatic biliary ductal dilation. The patient is status post cholecystectomy. Surgical clips are present. The spleen, pancreas, adrenal glands are unremarkable. A normal right kidney is present. There is left grade 2 hydroureteronephrosis secondary to an obstructive proximal calculus measuring 4 mm. There is mild left perinephric stranding. Following the administration of IV contrast, prompt symmetric nephrograms are displayed. There is no abdominal free fluid. There is neither mesenteric nor retroperitoneal lymphadenopathy. Normal unopacified loops of small and large bowel are identified. There is no pelvic free fluid. The urinary bladder is unremarkable. There is neither pelvic nor inguinal lymphadenopathy. Bone windows: Neither sclerotic nor lytic bone lesions are identified. There is disc height loss at L5/S1. IMPRESSION: Left grade 2 hydroureteronephrosis secondary to an obstructive 4 mm proximal left ureteral calculus.
[2016-09-09] MEDS ORDERED: PERCOCET 5-3251 EACH PO (04:02)
[2016-09-09] MEDS ORDERED: FLOMAX0.4 M1 PO (04:02)
[2016-09-09] MEDS ORDERED: IBUPROFEN800 M1 PO (04:02)
[2016-09-09] MEDS ORDERED: ZOFRAN ODT4 M1 PO (04:02)
[2016-09-09 04:14] VITALS: BP 127/68
== END 2016-09-09 04:12 ==
LOC: ERH 00:38
PROVIDERS: Emergency Medicine
DX: N23 Unspecified renal colic (principal)
CPT/HCPCS: 74177; 81001; 96361; 96374; 96375; J1885; J2405

== ENCOUNTER → 2017-12-11 | Day surgery (SDC) | payer OTHER ==
[~2017-12-11] VITALS: Ht 188 cm; Wt 112.0 kg
[~2017-12-11] MED LIST changes: +COUMADIN10 M1 PO; +COUMADIN7.5 M1 PO; +FLOMAX0.4 M1 PO; +IBUPROFEN800 M1 PO; +MAGNESIUM400 M1 PO; +METOPROLOL SUC100 M2 PO; +ZOFRAN ODT4 M1 PO
[2017-12-11 11:55] LABS: PT 13.3 SEC (9.4-12.5)
--- NOTE | 2017-12-11 14:28 | Operative Report ---
Operative/Inv Procedure Report Surgery Date: 12/11/17 Name of Procedure: Left distal biceps tendon repair Pre-Operative Diagnosis: Left distal biceps tendon rupture Post-Operative Diagnosis: Same Estimated Blood Loss: scant Surgeon/Gallery Or Museum Guide: Cholo MINER,Hugo Powell Anesthesia: laryngeal mask airway IV Fluids: See anesthesia record Drains: None Specimens: None Tourniquet: 55 minutes Complications: None Condition: Stable Operative Indication: Patient is a 49-year-old male who sustained a rupture of the distal biceps and on the left arm. MRI confirmed this. He was indicated for surgical reconstruction. Skills that hands as necessary and provided by physician assistant county engineer trauma generator with retraction and positioning of the limb throughout the case. Operative/Procedure Note Note: Once informed consent was obtained and the correct limb was identified patient brought to the operating room placed on table supine position. Administration of general endotracheal anesthesia the patient's left upper extremity a tourniquet placed was prepped and draped in usual sterile fashion. To begin the procedure a horizontal incision made in line with the skin crease of the antecubital fossa of the elbow. Sharp dissection was carried down through the skin. Dissection was switched over to Metzenbaum scissors with care to avoid any neurovascular structures. Using blunt dissection the biceps tendon was identified and the stump was harvested. Using a fiber loop whipstitch the biceps tendon was prepared for reconstruction repair back to the tuberosity of the radius. Once the biceps tendon was prepared a Catherine clamp was placed to find the tunnel for routing of the biceps tendon back to the radial tuberosity. A second incision was made on the forearm on the ulnar aspect. Sharp dissection was carried onto the skin and subcutaneous tissue. The fascia of the extensor carpi ulnaris was incised. The Catherine clamp was brought through the tunnel and the sutures were retrieved. The arm was in full pronation the entire time in the radial tuberosity was identified. Remnant of the stump was removed with a rongeur. Using a sharp bur a small cortical window was made for placement of the biceps tendon. 2 drill holes were placed on the roof of the cortical window to allow for suture tying over bone bridge. The sutures were passed through the 2 small drill holes with the use of suture passer and the stump was placed into the cortical window. The sutures were tied over the bone window without complication. The arm was taken through range of motion in the form had full pronation supination. There is excellent tension of the biceps tendon. At this point the wounds were copiously irrigated with sterile saline. The fascia of the extensor carpi ulnaris was repaired with 0 Vicryl interrupted sutures. Subcutaneous tissues of both incisions were closed with 2-0 Vicryl interrupted sutures and the skin was closed with a running 3-0 Monocryl subcuticular stitch. A sterile dressing and splint was applied and the patient was awakened taken recovery in stable condition.
== END ==
LOC: STS 03:24
PROVIDERS: Orthopaedic Surgery Foot and Ankle Surgery
DX: S46.212A Strain of muscle, fascia and tendon of other parts of biceps, left arm, initial encounter (principal); X50.0XXA Overexertion from strenuous movement or load, initial encounter; Z95.2 Presence of prosthetic heart valve; Z79.01 Long term (current) use of anticoagulants; I10 Essential (primary) hypertension
CPT/HCPCS: 36415; C9290; J0131; J0690; J1100; J1885; J2250; J2405